=== PATIENT | male | born 1975 | race American Indian/Alaskan Native ===

== ENCOUNTER 2021-01-29 19:08 | Emergency (ER) | payer SELFPAY ==
[2021-01-29 22:01] VITALS: BP 127/83
--- NOTE | 2021-01-29 22:40 | Emergency Department Report ---
ED General Adult HPI - General Chief complaint: Animal Bite Stated complaint: POSSIBLE SPIDER BITE Time Seen by Provider: 01/29/21 20:43 Source: patient Mode of arrival: Ambulatory Limitations: No Limitations - History of Present Illness Initial comments: 45-year-old -[place] male patient presents with complaints of possible spider bite to right lower leg x4 days. He reports there is itching and redness to the area with small pustules. He denies any fever/chills/sweats, pain, or difficulty moving his leg. No numbness/tingling/weakness per patient. He has not tried any OTC medications for his symptoms. -: Sudden - Related Data Previous Rx's Medication Instructions Recorded Last Taken Type Sulfamethoxazole/Trimethoprim 1 each PO BID 7 Days #14 tablet 01/29/21 Unknown Rx [Bactrim DS TAB] Triamcinolone Acetonide 15 gm TP TID PRN #1 oint...g. 01/29/21 Unknown Rx Allergies Allergy/AdvReac Type Severity Reaction Status Date / Time No Known Allergies Allergy Unverified 01/29/21 19:41 ED Review of Systems ROS: Stated complaint: POSSIBLE SPIDER BITE Other details as noted in HPI Constitutional: denies: chills, diaphoresis, fever, malaise, weakness Eyes: denies: vision change Respiratory: denies: cough, shortness of breath Cardiovascular: denies: chest pain Musculoskeletal: denies: joint swelling, arthralgia Skin: change in color, pruritus Neurological: denies: numbness, paresthesias, abnormal gait ED Past Medical Hx - Past Medical History Previous Medical History?: No - Surgical History Past Surgical History?: No - Social History Smoking Status: Current Every Day Smoker Substance Use Type: Alcohol, Marijuana - Medications Home Medications: Home Medications Medication Instructions Recorded Confirmed Last Taken Type Sulfamethoxazole/Trimethoprim 1 each PO BID 7 Days #14 tablet 01/29/21 Unknown Rx [Bactrim DS TAB] Triamcinolone Acetonide 15 gm TP TID PRN #1 oint...g. 01/29/21 Unknown Rx ED Physical Exam - General Limitations: No Limitations General appearance: alert, in no apparent distress - Head Head exam: Present: atraumatic, normocephalic - Eye Eye exam: Present: normal appearance. Absent: scleral icterus - Respiratory Respiratory exam: Absent: respiratory distress - Cardiovascular Cardiovascular Exam: Present: regular rate - Neurological Exam Neurological exam: Present: alert, oriented X3 - Psychiatric Psychiatric exam: Present: normal affect, normal mood - Skin Skin exam: Present: warm, dry, intact, erythema (Approximately 3 cm round area of erythema noted with 3 pustules; mild tenderness to palpation noted no fluctuance or cellulitic changes noted;) ED Course Vital Signs 01/29/21 19:42 Temperature 98.6 F Pulse Rate 59 L Respiratory 18 Rate Blood Pressure 127/83 O2 Sat by Pulse 98 Oximetry ED Medical Decision Making - Medical Decision Making 45-year-old -[place] male patient presents with complaints of possible spider bite to right lower leg x4 days. He reports there is itching and redness to the area with small pustules. He denies any fever/chills/sweats, pain, or difficulty moving his leg. No numbness/tingling/weakness per patient. He has not tried any OTC medications for his symptoms. Round area of erythema, mild tenderness, and pustules noted on right lower anterior leg without cellulitic changes or swelling. Will treat with triamcinolone cover for skin infection with Bactrim. Recommend follow-up with PCP in 3 days. His vitals are normal, he is well-appearing, he is stable for discharge home. Strict return precautions were discussed in detail with patient who verbalizes understanding. Critical care attestation.: If time is entered above; I have spent that time in minutes in the direct care of this critically ill patient, excluding procedure time. ED Disposition Clinical Impression: Insect bite Disposition: DC-01 TO HOME OR SELFCARE Is pt being admited?: No Condition: Stable Instructions: Insect Bite, Adult Prescriptions: Sulfamethoxazole/Trimethoprim [Bactrim DS TAB] 1 each PO BID 7 Days #14 tablet Triamcinolone Acetonide 15 gm TP TID PRN #1 oint...g. PRN Reason: Itching Referrals: [facility] [Provider Group] - 3-5 Days
== END 2021-01-29 22:50 | disposition home or self-care (01) ==
LOC: ED 19:08
DX: S81.851A Open bite, right lower leg, initial encounter (principal); F17.200 Nicotine dependence, unspecified, uncomplicated; F12.90 Cannabis use, unspecified, uncomplicated; Z79.899 Other long term (current) drug therapy; W57.XXXA Bitten or stung by nonvenomous insect and other nonvenomous arthropods, initial encounter; Y93.89 Activity, other specified; Y92.89 Other specified places as the place of occurrence of the external cause; Y99.8 Other external cause status
CPT/HCPCS: 99281